=== PATIENT | female | born 1970 | race Caucasian/White ===

== ENCOUNTER 2024-01-13 16:52 | Emergency (ER) | payer OTHER, SELFPAY ==
[2024-01-13 16:53] VITALS: BP 169/100; PULSE 78; RESP 18; TEMP 36.7; O2SAT 99; BMI 31.3
--- NOTE | 2024-01-13 17:48 | XR_ITS ---
PROCEDURE INFORMATION: Exam: XR Right Knee Exam date and time: 01/13/2024 6:00 PM Age: 53 years old Clinical indication: Pain; Knee; Right; Additional info: Pain behind knee TECHNIQUE: Imaging protocol: Radiologic exam of the right knee. Views: 1 or 2 views. COMPARISON: No relevant prior studies available. FINDINGS: Bones/joints: There is no evidence of acute fracture or dislocation. Joint spaces appear preserved. Soft tissues: No significant soft tissue edema. No subcutaneous emphysema or radiopaque foreign bodies. There is a small suprapatellar joint effusion. IMPRESSION: No acute posttraumatic osseous injury.
--- NOTE | 2024-01-13 17:49 | HMH.EDGENADL ---
Discharge Plan Disposition Patient Disposition: Home, Self-Care Referrals Follow up/Referrals: Bebo Santana DO [Staff Physician] - See instructions Provider,Referral, [Primary Care Provider] - See instructions Activity Restrictions/Add. Instructions Additional Instructions/Restrictions: At this time it was felt you are safe to be discharged home. If new or worsening symptoms please do not hesitate to return the emergency department. Please call and schedule an appointment with Dr. Santana as soon as you are able. For pain please take Tylenol and ibuprofen. Clinical Impressions Clinical Impression: Acute leg pain Discharge ED Provider: Chad Duffy General Adult HPI General Chief complaint: Extremity Problem,Nontraumatic Stated complaint: Knee Pain Time Seen by Provider: 01/13/24 17:12 Mode of Arrival: EMS Source of Information: Patient Limitations: No Limitations Description of Symptoms (Recalled from ER Triage Doc. by RN): PT WOKE WITH PAIN AND KNOT BEHIND RIGHT KNEE. NO INJURY History of Present Illness HPI narrative: Patient is a 53-year-old female with past medical history of hypertension, hyperlipidemia, coronary artery disease who presents emergency department for evaluation of pain behind the right knee. Onset was acute, over the last 24 hours, she feels a knot behind her right knee. She has never had this before. No worsening swelling of her lower extremity from baseline, no overlying skin discoloration. Patient is able to bear weight however it is painful. Patient is on dual antiplatelet therapy. No other acute complaints at this time. No trauma. Related Data Allergies Allergy/AdvReac Type Severity Reaction Status Date / Time sumatriptan [From Imitrex] Allergy Verified 01/13/24 17:14 tramadol Allergy Verified 01/13/24 17:14 [facility] Disclaimer: The information contained in this section may have been updated after the patient was seen, as this information can be updated by other users. Social History Smoking Status: Current every day smoker alcohol intake: never current occupational status: other Travel in the last 8 weeks: None ROS Obtained: Yes Systems reviewed as appropriate & no additional complaints except as documented Physical Exam General General appearance: alert and in no apparent distress Head Head exam: atraumatic and normocephalic Eye Eye exam: Present PERRL and EOMI ENT ENT exam: Present mucous membranes moist Neck Neck exam: Present normal inspection Chest Chest inspection: Present normal inspection and symmetric chest wall rise Respiratory Respiratory exam: Present normal lung sounds bilaterally; Absent respiratory distress Cardiovascular Cardiovascular exam: Present regular rate and normal rhythm Abdominal Exam Abdominal exam: Present soft; Absent tenderness Extremities Exam Extremities exam: Present normal inspection and other (Extensor mechanism right lower extremity intact, no overlying skin changes, no significant knee effusion. Palpable dorsal pedal pulse on the right. Small palpable area of tenderness behind the right knee.) Neurological Exam Neurological exam: Present alert; Absent motor sensory deficit Psychiatric Psychiatric exam: Present normal affect Skin Skin exam: Present warm and dry Medical Decision Making [place] Inquiry Pt receiving controlled substance: No Vital Signs: 01/13/24 16:53 Temperature 98.0 F Temperature Source Oral Pulse Rate [Radial] 78 Respiratory Rate 18 Blood Pressure [Right Arm] 169/100 H Blood Pressure Mean [Right Arm] 123 Blood Pressure Source [Right Arm] Automatic Cuff Blood Pressure Position [Right Arm] Sitting 02 Sat by Pulse Oximetry 99 Oxygen Delivery Method Room Air Orders (Tests/Meds): ED MEDICATIONS Discontinued Medications Generic Name Dose Route Start Last Admin Trade Name Freq PRN Reason Stop Dose Admin Acetaminophen 1,000 mg 01/13/24 17:48 01/13/24 18:29 Acetaminophen 500mg Tab PO 01/13/24 17:49 Not Given ONCE ONE Ibuprofen 600 mg 01/13/24 17:48 01/13/24 18:03 Ibuprofen 600 Mg Tablet PO 01/13/24 17:49 600 mg ONCE ONE Administration ORDERS Category Date Time Status Knee XR right 2 views [XR knee RT 2V] Stat Exams 01/13/24 17:48 Completed POCUS Point of Care (ER Only) Stat Exams 01/13/24 17:19 Completed Medical Decision Narrative: In summary patient is a 53-year-old female past medical history described above who presents emergency department for evaluation of pain behind her right knee. Patient is hemodynamically stable nontoxic-appearing upon arrival, afebrile. Differential diagnosis includes Sánchez's cyst, lymph node, among others. No concern for arterial pathology given that patient is well-perfused distally. No asymmetric swelling of the leg, no swelling of the leg, focal area of tenderness makes DVT less likely. Workup will be conducted with x-ray and [id number] ultrasound. Initial inventions include Tylenol and ibuprofen. X-ray shows no acute posttraumatic osseous injury. [id number] ultrasound shows no DVT. Given that patient has no significant asymmetric swelling, no discoloration, no evidence of focal DVT at the a pinpoint area where she hurts I feel the patient is appropriate for outpatient management at this time she was given multiple return precautions and verbalized understanding. Patient will follow-up with Dr. Santana. Indication: Limited compression ultrasonography of the right lower extremity was performed to evaluate for non-compressibility of the deep veins in the patient. The ultrasound was performed with the following indications, as noted in the H&P: Right leg pain Identified structures: Right popliteal vein examined Findings: Right popliteal vein sequential compressibility Impression: Normal Images were saved to permanent archive The study was technically adequate CPT: 97388-78-YK [id number] 34583-86 (complete bilateral study) This study was performed by me, and I personally interpreted all images/videos. Based on my clinical judgement, these images were [adequate/inadequate] and [did/did not] necessitate further imaging. Critical Care Critical Care Time Critical Care Time: No
[2024-01-13] MEDS: IBUPROFEN 600 MG TABLET PO (18:03)
[2024-01-13 19:24] VITALS: BP 169/100; PULSE 78; RESP 18; TEMP 36.7; O2SAT 99
== END 2024-01-13 19:25 | disposition home or self-care (01) ==
PROVIDERS: Emergency Provider Emergency Medicine
DX: M79.604 Pain in right leg (principal); M25.561 Pain in right knee
CPT/HCPCS: 73560; 99284